=== PATIENT | male | born 1985 | race Two or more races ===

== ENCOUNTER → 2018-11-29 | Outpatient (CLI) | payer OTHER ==
[~2018-11-29] MED LIST: GADOTERATE 7.5 MMOL/15ML VIAL. IVP ONE
--- NOTE | 2018-11-29 13:41 | RAD ---
EXAM: Thoracic spine MRI without and with contrast. HISTORY: Lipoma. TECHNIQUE: Multiplanar, multisequence magnetic resonance imaging of the thoracic spine was performed prior to and following the administration of 17 cc Dotarem intravenous contrast. COMPARISON: None. FINDINGS: There is mild thoracic levocurvature centered at the upper thoracic levels. There is no significant listhesis. There is slight reversal of cervical lordosis. There is a minimal T1 superior endplate depression and suspected adjacent C7 inferior endplate remodeling or Schmorl's node. There is no acute or subacute fracture. There is no suspicious osseous lesion. There is slight desiccation of the intervertebral discs at the upper thoracic levels. No spinal cord lesion is seen. The conus is excluded from the [id number] on T2-weighted images. There is mild diffusely decreased T1 marrow signal intensity, not clearly within limits to suggest a marrow infiltrative process or anemia. There is moderate to severe maxillary sinus mucosal thickening with mucous retention cysts. There is no significant thoracic disc protrusion or significant thoracic foraminal or central canal stenosis. There is and approximately 10 x 6 x 2 cm fat signal intensity lesion within the right back subcutaneous fat posterior to the latissimus muscle belly. This demonstrates no enhancement and is likely a lipoma. No suspicious soft tissue lesion is seen. IMPRESSION: 1. No acute finding or significant thoracic foraminal or central canal stenosis. 2. Slight disc desiccation and minimal endplate remodeling at the upper thoracic levels. There is a minimal chronic superior endplate depression at T1 and inferior endplate depression at C7, the latter which may be associated with a developing Schmorl's node. 3. Suspected 10 cm lipoma within the right back subcutaneous fat. 4. Maxillary sinus disease. Electronically signed by: Marilu Feldman MD (11/29/2018 1:38 PM) [place] [id number]
== END | disposition home or self-care (01) ==
LOC: MRI 10:00
PROVIDERS: ATTEND Family Medicine
DX: J34.1 Cyst and mucocele of nose and nasal sinus (principal); J34.89 Other specified disorders of nose and nasal sinuses
CPT/HCPCS: 72157; A9575